=== PATIENT | female | born 1950 | race African-American/Black ===

== ENCOUNTER 2024-04-30 11:34 | Inpatient (IN) | payer OTHER, MEDICAID, MEDICARE ==
[~2024-04-30] VITALS: Ht 160 cm; Wt 74.8 kg
[~2024-04-30 11:34] MED LIST: AMLO10TA80 PO; ATOR40TA70 PO; CLON0.1T PO; FERR210T PO; FURO40TA5 PO; METO-396 PO
[2024-04-30 12:27] LABS: CHLORIDE 106 mEq/L (98-107); POTASSIUM 4.2 mEq/L (3.5-5.1)
[2024-04-30 12:28] LABS: CARBON DIOXIDE 21 mEq/L (21-32); SODIUM 139 mEq/L (136-145)
[2024-04-30 12:29] LABS: CALCIUM 9.3 mg/dL (8.7-10.4)
[2024-04-30 12:34] LABS: BASOPHILS % 0.8 % (0.0-2.0); EOSINOPHILS % 10.4 % (0.0-5.0); GLUCOSE 138 mg/dL (70-105); HEMATOCRIT. 32.3 % (36.0-48.0); HEMOGLOBIN. 10.3 g/dL (12.0-16.0); LYMPHOCYTES % 20.3 % (20.0-50.0); MEAN CORPUSCULAR HEMOGLOBIN 26.6 pg (28.0-32.0); MEAN CORPUSCULAR HGB CONC 31.8 g/dL (31.0-37.0); MEAN CORPUSCULAR VOLUME 83.8 fL (81.0-99.0); MEAN PLATELET VOLUME 9.6 fl (7.4-10.4); NEUTROPHILS % 61.5 % (40.0-76.0); PLATELET 176 x1000/uL (130-400); RED BLOOD CELL COUNT 3.85 mill/uL (4.2-5.4); RED CELL DISTRIBUTION WIDTH 18.9 % (11.6-14.6); UREA NITROGEN BLOOD 60 mg/dL (9-23); WHITE BLOOD COUNT 7.2 x1000/uL (4.5-11.0)
[2024-04-30 12:35] LABS: PROTHROMBIN TIME 11.3 sec (9.6-11.0)
[2024-04-30 12:45] LABS: ETHANOL BLOOD < 10 mg/dL (<10)
[2024-04-30 12:47] LABS: TROPONIN I HIGH SENSITIVITY 362 ng/L (3.0-34)
[2024-04-30] MEDS: IOHEXOL-350 100 ML BOTTLE ONE ×2 (13:50→20:00)
[2024-04-30 14:51] LABS: CLARITY URINE CLOUDY (CLEAR); COLOR URINE YELLOW (YELLOW); GLUCOSE URINE TRACE (NEGATIVE); KETONES URINE NEGATIVE (NEGATIVE); LEUKOCYTE ESTERASE URINE NEGATIVE (NEGATIVE); NITRITE URINE NEGATIVE (NEGATIVE); OCCULT BLOOD URINE TRACE (NEGATIVE); PH URINE 7.5 (4.5-8.0); PROTEIN URINE 3+ (NEGATIVE); SPECIFIC GRAVITY URINE 1.022 (1.005-1.030); UROBILINOGEN URINE 0.2 E.U./dL (0.2-1.0)
[2024-04-30 15:01] LABS: *AMPHETAMINES SCREEN URINE NEGATIVE (NEGATIVE); *BENZODIAZEPINES SCREEN URINE NEGATIVE (NEGATIVE)
[2024-04-30 15:02] LABS: *BARBITURATES SCREEN URINE NEGATIVE (NEGATIVE); *COCAINE SCREEN URINE NEGATIVE (NEGATIVE); CANNABINOID URINE SCREEN NEGATIVE (NEGATIVE); ECSTASY MDMA SCREEN URINE NEGATIVE (NEGATIVE); METHADONE URINE SCREEN NEGATIVE (NEGATIVE); OPIATES URINE SCREEN NEGATIVE (NEGATIVE); PHENCYCLIDINE URINE SCREEN NEGATIVE (NEGATIVE)
[2024-04-30 15:08] LABS: SQUAMOUS EPITHELIAL CELL URINE 1+ /lpf (RARE/1+); WBC URINE 0-2 /hpf (0-2)
[2024-04-30 15:09] LABS: BACTERIA URINE 1+; YEAST URINE 1+
[2024-05-01] VITALS (12 sets, daily range): BP systolic 133–157; BP diastolic 58–93; PULSE 70–99; RESP 16–20; TEMP 96.6–98.1
[2024-05-01] MEDS: CLOPIDOGREL 75MG TABLET PO SCH (09:30)
[2024-05-01] MEDS: ENOXAPARIN 30MG/0.3ML SYR SUBCUT SCH (09:30)
[2024-05-01] MEDS ORDERED: ONDANSETRON HCL 4MG/2ML INJ IV PRN (09:30)
[2024-05-01] MEDS ORDERED: ACETAMINOPHEN 325MG TABLET PO PRN (09:30)
[2024-05-01] MEDS ORDERED: CLONIDINE 0.1MG TABLET PO PRN (09:30)
[2024-05-01 12:10] LABS: BASOPHILS % 0.7 % (0.0-2.0); EOSINOPHILS % 6.2 % (0.0-5.0); HEMATOCRIT. 33.9 % (36.0-48.0); HEMOGLOBIN. 10.7 g/dL (12.0-16.0); LYMPHOCYTES % 11.8 % (20.0-50.0); MEAN CORPUSCULAR HEMOGLOBIN 26.9 pg (28.0-32.0); MEAN CORPUSCULAR HGB CONC 31.7 g/dL (31.0-37.0); MEAN PLATELET VOLUME 9.3 fl (7.4-10.4); MONOCYTES % 6.5 % (2.0-8.0); NEUTROPHILS % 74.8 % (40.0-76.0); PLATELET 188 x1000/uL (130-400); RED BLOOD CELL COUNT 3.99 mill/uL (4.2-5.4); RED CELL DISTRIBUTION WIDTH 18.6 % (11.6-14.6); WHITE BLOOD COUNT 8.3 x1000/uL (4.5-11.0)
[2024-05-01 12:27] LABS: PROTHROMBIN TIME 11.4 sec (9.6-11.0)
[2024-05-01 12:30] LABS: POTASSIUM 4.7 mEq/L (3.5-5.1)
[2024-05-01 12:31] LABS: CALCIUM 9.7 mg/dL (8.7-10.4)
[2024-05-01 12:57] LABS: CREATININE 7.2 mg/dL (0.6-1.0)
[2024-05-01 14:42] LABS: HEPATITIS B SURFACE ANTIGEN NEGATIVE (Negative)
[2024-05-01 15:03] LABS: HEPATITIS A AB IGM NEGATIVE (Negative); HEPATITIS B CORE AB IGM NEGATIVE (Negative)
[2024-05-01 15:04] LABS: HEPATITIS C AB NON REACTIVE (Neg) (Negative)
[2024-05-01 15:19] LABS: TROPONIN I HIGH SENSITIVITY 381 ng/L (3.0-34)
[2024-05-01] MEDS: ATORVASTATIN CALCIUM 40MG TABLET PO SCH (21:05)
[2024-05-01] MEDS: FUROSEMIDE 40MG TABLET PO SCH (21:06)
[2024-05-02] VITALS: BP 138/54; PULSE 87; RESP 20; TEMP 98.2
[2024-05-02 04:45] VITALS: BP 141/76; PULSE 86; RESP 20
[2024-05-02 08:00] VITALS: BP 152/72; PULSE 84; RESP 20; TEMP 97.7
[2024-05-02] MEDS: METOPROLOL SUCCINATE 25MG ER TABLET PO SCH (10:22)
[2024-05-02] MEDS: AMLODIPINE 10MG TABLET PO SCH (10:22)
[2024-05-02] MEDS: ASPIRIN 81MG TABLET PO SCH (10:22)
[2024-05-02 12:00] VITALS: BP 156/74; PULSE 87; RESP 18; TEMP 97.2
[2024-05-02 16:00] VITALS: BP 121/77; PULSE 81; RESP 20; TEMP 97.5
[2024-05-02 20:00] VITALS: BP 125/78; PULSE 79; RESP 16; TEMP 97.8
[2024-05-02] MEDS ORDERED: ATORVASTATIN CALCIUM 40MG TABLET PO SCH (21:00)
[2024-05-03] VITALS (10 sets, daily range): BP systolic 119–158; BP diastolic 59–93; PULSE 71–97; RESP 18–21; TEMP 97.1–98
[2024-05-03 14:24] LABS: BASOPHILS % 1.3 % (0.0-2.0); EOSINOPHILS % 11.3 % (0.0-5.0); HEMATOCRIT. 35.5 % (36.0-48.0); HEMOGLOBIN. 11.2 g/dL (12.0-16.0); LYMPHOCYTES % 25.5 % (20.0-50.0); MEAN CORPUSCULAR HEMOGLOBIN 26.4 pg (28.0-32.0); MEAN CORPUSCULAR HGB CONC 31.4 g/dL (31.0-37.0); MEAN PLATELET VOLUME 9.2 fl (7.4-10.4); MONOCYTES % 6.7 % (2.0-8.0); NEUTROPHILS % 55.2 % (40.0-76.0); PLATELET 190 x1000/uL (130-400); RED BLOOD CELL COUNT 4.23 mill/uL (4.2-5.4); RED CELL DISTRIBUTION WIDTH 17.7 % (11.6-14.6); WHITE BLOOD COUNT 5.9 x1000/uL (4.5-11.0)
[2024-05-03] MEDS ORDERED: CLOP-31 PO (14:28)
[2024-05-03] MEDS ORDERED: ASPI-1160 PO (14:28)
[2024-05-03] MEDS ORDERED: LIP40 PO (14:28)
[2024-05-03 14:29] LABS: POTASSIUM 3.1 mEq/L (3.5-5.1)
[2024-05-03 14:31] LABS: CALCIUM 9.1 mg/dL (8.7-10.4)
[2024-05-03 14:48] LABS: CREATININE 4.2 mg/dL (0.6-1.0)
[2024-05-04] VITALS (7 sets, daily range): BP systolic 100–156; BP diastolic 45–87; PULSE 74–90; RESP 16–21; TEMP 97.1–98.2; O2SAT 98
== END 2024-05-04 20:35 | disposition home health service (06) | DRG 64 ==
LOC: ER 11:34 → 5WST 13:29 → EDBEDREQTM 13:33 → EDBEDREQ 13:33 → 7WST 05-01 11:39
PROVIDERS: ADMIT Internal Medicine; ATTEND Internal Medicine
PROC: 5A1D70Z Performance of Urinary Filtration, Intermittent, Less than 6 Hours Per Day (ICD-10-PCS; principal; 2024-05-01)
PROC: 5A1D70Z Performance of Urinary Filtration, Intermittent, Less than 6 Hours Per Day (ICD-10-PCS; 2024-05-03)
DX: I63.81 Other cerebral infarction due to occlusion or stenosis of small artery (principal); J96.91 Respiratory failure, unspecified with hypoxia; N18.6 End stage renal disease; E87.20 Acidosis, unspecified; G93.40 Encephalopathy, unspecified; I13.2 Hypertensive heart and chronic kidney disease with heart failure and with stage 5 chronic kidney disease, or end stage renal disease; I16.1 Hypertensive emergency; I69.351 Hemiplegia and hemiparesis following cerebral infarction affecting right dominant side; I50.22 Chronic systolic (congestive) heart failure; D64.9 Anemia, unspecified; E11.22 Type 2 diabetes mellitus with diabetic chronic kidney disease; R82.71 Bacteriuria; E78.5 Hyperlipidemia, unspecified; I44.7 Left bundle-branch block, unspecified; I69.322 Dysarthria following cerebral infarction; R29.718 NIHSS score 18; I44.0 Atrioventricular block, first degree; Z99.2 Dependence on renal dialysis
CPT/HCPCS: 36415; 70496; 70498; 70551; 71045; 80048; 80061; 80305; 80320; 81003; 84484; 85025; 86705; 86709; 87340; 90935; 93005; 93306; 97112; 97162; 97166; 99285; J1650; Q9967; G0480

== ENCOUNTER 2024-12-24 01:10 | Inpatient (IN) | payer BC, MEDICAID ==
[~2024-12-24] VITALS: Ht 157.5 cm; Wt 66.2 kg
[~2024-12-24 01:10] MED LIST changes: +ASPI-1160 PO; -ATOR40TA70 PO; +CLOP-31 PO; +ISOS30TA91 PO; +LIP40 PO
[2024-12-24 03:07] LABS: BASOPHILS % 0.9 % (0.0-2.0); EOSINOPHILS % 6.2 % (0.0-5.0); HEMATOCRIT. 32.3 % (36.0-48.0); HEMOGLOBIN. 10.3 g/dL (12.0-16.0); LYMPHOCYTES % 17.9 % (20.0-50.0); MEAN CORPUSCULAR HEMOGLOBIN 27.4 pg (28.0-32.0); MEAN CORPUSCULAR VOLUME 85.5 fL (81.0-99.0); PLATELET 238 x1000/uL (130-400); RED BLOOD CELL COUNT 3.78 mill/uL (4.2-5.4); RED CELL DISTRIBUTION WIDTH 16.6 % (11.6-14.6); WHITE BLOOD COUNT 8.4 x1000/uL (4.5-11.0)
[2024-12-24 03:09] LABS: CHLORIDE 100 mEq/L (98-107); POTASSIUM 4.9 mEq/L (3.5-5.1)
[2024-12-24 03:10] LABS: CARBON DIOXIDE 29 mEq/L (21-32); SODIUM 142 mEq/L (136-145)
[2024-12-24 03:11] LABS: CALCIUM 9.9 mg/dL (8.7-10.4)
[2024-12-24 03:16] LABS: GLUCOSE 221 mg/dL (70-105); UREA NITROGEN BLOOD 63 mg/dL (9-23)
[2024-12-24 03:33] LABS: CREATININE 8.2 mg/dL (0.6-1.0); TROPONIN I HIGH SENSITIVITY 193 ng/L (3.0-34)
[2024-12-24 06:14] LABS: TROPONIN I HIGH SENSITIVITY 195 ng/L (3.0-34)
[2024-12-24 17:49] VITALS: BP 154/88; PULSE 85; RESP 18; TEMP 36.6
[2024-12-24] MEDS ORDERED: DEXTROSE 50% WATER 50ML SYRINGE IV PRN (18:45)
[2024-12-24 20:00] VITALS: BP 167/90; PULSE 82; RESP 18; TEMP 36.6; O2SAT 97
[2024-12-24] MEDS: BLOOD SUGAR DIAGNOSTIC STRIP TEST SCH (21:00)
[2024-12-24 21:16] LABS: TROPONIN I HIGH SENSITIVITY 190 ng/L (3.0-34)
[2024-12-24] MEDS: ATORVASTATIN CALCIUM 40MG TABLET PO SCH (21:30)
[2024-12-24] MEDS: METOPROLOL TARTRATE 50MG TABLET PO SCH (21:30)
[2024-12-24] MEDS: INSULIN GLARGINE 100 UNITS/ML SUBCUT SCH (21:31)
[2024-12-24] MEDS: INSULIN LISPRO 100 UNITS/ML SUBCUT SCH (21:32)
[2024-12-24] MEDS: HYDROCODONE/ACETAMINOPHEN 5/325MG TABLET PO PRN (23:00)
[2024-12-25] VITALS (11 sets, daily range): BP systolic 105–160; BP diastolic 61–80; PULSE 60–88; RESP 18–22; TEMP 35.9–36.7; O2SAT 96–99
[2024-12-25] MEDS: ASPIRIN 81MG TABLET PO SCH (08:47)
[2024-12-25] MEDS: ENOXAPARIN 30MG/0.3ML SYR SUBCUT SCH (08:48)
[2024-12-25 10:19] LABS: BASOPHILS % 1.1 % (0.0-2.0); EOSINOPHILS % 8.5 % (0.0-5.0); HEMATOCRIT. 34.1 % (36.0-48.0); HEMOGLOBIN. 10.7 g/dL (12.0-16.0); MEAN CORPUSCULAR HEMOGLOBIN 27.4 pg (28.0-32.0); MEAN CORPUSCULAR HGB CONC 31.5 g/dL (31.0-37.0); MEAN CORPUSCULAR VOLUME 87.1 fL (81.0-99.0); MEAN PLATELET VOLUME 8.8 fl (7.4-10.4); MONOCYTES % 9.9 % (2.0-8.0); NEUTROPHILS % 61.5 % (40.0-76.0); PLATELET 237 x1000/uL (130-400); RED BLOOD CELL COUNT 3.92 mill/uL (4.2-5.4); WHITE BLOOD COUNT 6.9 x1000/uL (4.5-11.0)
[2024-12-25 10:45] LABS: CALCIUM 10.1 mg/dL (8.7-10.4)
[2024-12-25 11:12] LABS: POTASSIUM 6.2 mEq/L (3.5-5.1)
[2024-12-25 11:13] LABS: CREATININE 8.9 mg/dL (0.6-1.0)
[2024-12-25] MEDS: CLOPIDOGREL 75MG TABLET PO SCH (11:36)
[2024-12-25] MEDS: ISOSORBIDE MONONITRATE 30MG TABLET SR 24HR PO SCH (11:36)
[2024-12-25] MEDS: LOSARTAN 100 MG TABLET PO SCH (12:49)
[2024-12-25 19:18] LABS: PHOSPHORUS 4.3 mg/dL (2.5-4.9)
[2024-12-25 19:35] LABS: HEPATITIS B SURFACE ANTIGEN NEGATIVE (Negative)
[2024-12-25 19:55] LABS: HEPATITIS A AB IGM NEGATIVE (Negative)
[2024-12-25 19:56] LABS: HEPATITIS B CORE AB IGM NEGATIVE (Negative); HEPATITIS C AB NON REACTIVE (Neg) (Negative)
[2024-12-26] VITALS (7 sets, daily range): BP systolic 115–148; BP diastolic 40–66; PULSE 60–76; RESP 18; TEMP 36.1–36.6; O2SAT 96–99
[2024-12-26] MEDS ORDERED: ASPI-1406 MT (12:53)
[2024-12-26] MEDS ORDERED: CLOP-31 MT (12:53)
[2024-12-26] MEDS ORDERED: LIP40 MT (12:53)
== END 2024-12-26 19:50 | disposition home or self-care (01) | DRG 640 ==
LOC: ER 01:10 → 8WST 18:30
PROVIDERS: ADMIT Internal Medicine; ATTEND Internal Medicine
PROC: 5A1D70Z Performance of Urinary Filtration, Intermittent, Less than 6 Hours Per Day (ICD-10-PCS; principal; 2024-12-25)
DX: E87.5 Hyperkalemia (principal); I50.23 Acute on chronic systolic (congestive) heart failure; N18.6 End stage renal disease; I13.2 Hypertensive heart and chronic kidney disease with heart failure and with stage 5 chronic kidney disease, or end stage renal disease; E11.22 Type 2 diabetes mellitus with diabetic chronic kidney disease; I25.10 Atherosclerotic heart disease of native coronary artery without angina pectoris; Z86.73 Personal history of transient ischemic attack (TIA), and cerebral infarction without residual deficits; Z95.5 Presence of coronary angioplasty implant and graft; Z99.2 Dependence on renal dialysis; I25.2 Old myocardial infarction; Z91.158 Patient's noncompliance with renal dialysis for other reason
CPT/HCPCS: 36415; 71045; 80048; 82962; 83036; 84100; 84484; 85025; 86705; 86709; 87340; 90935; 93970; 99285; J1650; J1815